=== PATIENT | female | born 1970 | race Caucasian/White ===

== ENCOUNTER → 2020-03-09 | Outpatient (CLI) | payer BC ==
[~2020-03-09] MED LIST: ARIP5TAB13 PO; LAMO150T3 PO; PROP40TA PO; VENL150C PO
== END ==
LOC: LAB 08:38
PROVIDERS: ATTEND Nurse Anesthetist, Certified Registered
DX: Z01.812 Encounter for preprocedural laboratory examination (principal); R19.7 Diarrhea, unspecified; Z20.828 Contact with and (suspected) exposure to other viral communicable diseases
CPT/HCPCS: U0003-CS

== ENCOUNTER → 2020-03-13 | Day surgery (SDC) | payer BC ==
[~2020-03-13] MED LIST changes: +ACETAMINOPHEN 325 MG TABLET PO PRN; +ALBUTEROL SULFATE 2.5 MG/3 ML NEBU. NEB PRN; +ATROPINE 0.5 MG/5 ML DISP.SYRIN. IV PRN; +IV RINGERS SOLUTION,LACTATED 1,000 ML IV SCH; +MIDAZOLAM HCL PF 2 MG/2 ML VIAL. IV PRN; +ONDANSETRON PF 4 MG/2 ML VIAL. IV PRN; +PHENOL ORAL SPRAY 177ML BOTTLE. MM PRN; +PROPOFOL 10,000 MCG/ML (20ML) VIAL IV ONE; +diphenhydrAMINE 50 MG/ML VIAL IV PRN
[2020-03-13 11:04] VITALS: BP 101/64
--- NOTE | 2020-03-16 14:09 | PATHOLOGY ---
[facility] Accession Number: [id number] . 01 Material submitted: . colon - BIOPSY RANDOM COLON . 01 Clinical history: . COLITIS, HX POLYPS . 02 Diagnosis: Colonic mucosa, random colon biopsies: - Mild chronic active colitis with focal features suggestive of collagenous colitis. (JPM:arsalan; 03/15/2020) S 03/15/2020 0947 Local . 02 Comment: Sections of the random colon biopsy reveal multiple segments of colonic mucosa showing a mild chronic active colitis without crypt architectural distortion. There are focal areas suggestive of increased collagen deposition beneath the surface epithelium. The findings are suggestive of collagenous colitis. There is no evidence of a chronic destructive colitis. (JPM:arsalan; 03/15/2020) . 02 Electronically signed: . Jaden Gallegos MD, Pathologist NPI- [id number] . 01 Gross description: . The specimen is received in formalin, labeled "Shadia Amador, biopsy random colon". Received are multiple segments of pale liu soft tissue ranging in size from 0.2 to 0.5 cm in maximum dimensions. The specimen is submitted entirely in cassette A1. (CAA; 03/14/2020) QAC/QAC 03/14/2020 1448 Local . 02 Pathologist provided ICD-10: K52.9 . 02 CPT . 377083 Specimen Comment: A courtesy copy of this report has been sent to [phone] Specimen Comment: [phone] Specimen Comment: Report sent to / DR KAT Performed at: [address], [place], [place] [id number] MD Hesham Carreon MD Phone: [phone] Performed at: 02 [facility] [address] [place] [id number] MD Jaden Gallegos MD Phone: [phone]
== END | disposition home or self-care (01) ==
LOC: SURG 09:08
PROVIDERS: ATTEND Emergency Medicine
DX: R19.7 Diarrhea, unspecified (principal); K51.90 Ulcerative colitis, unspecified, without complications; K63.89 Other specified diseases of intestine; F31.9 Bipolar disorder, unspecified; F17.210 Nicotine dependence, cigarettes, uncomplicated; M19.90 Unspecified osteoarthritis, unspecified site; Z79.899 Other long term (current) drug therapy; Z98.890 Other specified postprocedural states; Z88.8 Allergy status to other drugs, medicaments and biological substances; Z86.010 Personal history of colon polyps; Z88.1 Allergy status to other antibiotic agents
CPT/HCPCS: 45380; J2704; J7120